=== PATIENT | female | born 1975 | race African-American/Black ===

== ENCOUNTER 2021-06-22 13:35 | Observation (INO) | payer OTHER ==
[2021-06-22] MEDS ORDERED: ONDANSETRON 4 MG/2 ML VIAL IVPUSH ONE (14:23)
[2021-06-22] MEDS ORDERED: morphine CARPU-JECT 4 MG/1 ML DISP.SYRIN IVPUSH ONE (14:23)
[2021-06-22] MEDS ORDERED: morphine SULFATE 4 MG/ML VIAL ONE ×2 (14:26→18:30)
[2021-06-22] MEDS ORDERED: ONDANSETRON 4 MG/2 ML VIAL ONE ×3 (14:27→18:38)
[2021-06-22] MEDS ORDERED: SODIUM CHLORIDE 0.9% 500 ML INFUS.BAG IV ONE (14:29)
[2021-06-22] MEDS ORDERED: FAMOTIDINE 20 MG/50 ML IVPB 20 MG/50 ML MG IVPB ONE ×2 (14:48→15:01)
[2021-06-22 15:25] LABS: BASO % 0.6 % (0-2.0); EOS % 0.2 % (0-4.5); HEMOGLOBIN 13.4 GM/dL (10.7-15.3); LYMPH % 14.2 % (8-40); MCH 35.4 pg (25.7-33.7); MCHC 34.3 g/dl (32.0-36.0); MEAN CELL VOLUME 103.2 fl (80-96); MONO % 3.9 % (3.8-10.2); NEUT % 81.1 % (42.8-82.8); PLATELET COUNT 224 10^3/uL (134-434); RBC 3.78 M/mm3 (3.60-5.2); RDW 13.3 % (11.6-15.6); WHITE BLOOD COUNT 7.1 K/mm3 (4.0-10.0)
[2021-06-22 15:31] LABS: INR 0.98 (0.83-1.09)
[2021-06-22 15:34] LABS: ACTIVATED PTT 26.3 SECONDS (25.2-36.5)
[2021-06-22] MEDS ORDERED: KETOROLAC TROMETHAMINE 30 MG/1 ML VIAL IVPUSH ONE (15:34)
[2021-06-22] MEDS ORDERED: ACETAMINOPHEN 1000 MG/100 ML VIAL IVPB ONE (15:34)
[2021-06-22] MEDS ORDERED: Methylnaltrexone Bromide 12 MG/0.6 ML KIT SQ ONE (15:36)
[2021-06-22] MEDS ORDERED: SODIUM CHLORIDE 0.9% 1000 ML INFUS.BAG IV ONE (15:38)
[2021-06-22] MEDS ORDERED: KETOROLAC TROMETHAMINE 30 MG/1 ML VIAL ONE (15:42)
[2021-06-22] MEDS ORDERED: ACETAMINOPHEN INJECTION 100 ML IVPB ONE (15:42)
[2021-06-22 15:45] LABS: CALCIUM 9.2 mg/dL (8.5-10.1)
[2021-06-22 15:46] LABS: ALBUMIN 4.1 g/dl (3.4-5.0); BLOOD UREA NITROGEN 7.6 mg/dL (7-18)
[2021-06-22 15:49] LABS: CREATININE 1.1 mg/dL (0.55-1.3)
[2021-06-22 15:51] LABS: BILIRUBIN,TOTAL 0.5 mg/dL (0.2-1); TOT PROT 7.7 g/dl (6.4-8.2)
[2021-06-22] MEDS ORDERED: ONDANSETRON 4 MG/2 ML VIAL IVPUSH PRN (17:52)
[2021-06-22] MEDS ORDERED: IBUPROFEN 600 MG TABLET (FP) PO PRN (17:52)
[2021-06-22] MEDS ORDERED: ACETAMINOPHEN 325 MG TABLET (FP) PO PRN (17:52)
[2021-06-22] MEDS ORDERED: HYDROmorphone HCL CARPU-JECT 2 MG/1 ML DISP.SYRIN IVPUSH ONE (18:14)
[2021-06-22] MEDS ORDERED: morphine SULFATE 4 MG/ML VIAL IVPUSH ONE (18:15)
[2021-06-22] MEDS: LACTATED RINGERS SOLUTION 1,000 ML IV SCH (18:19)
[2021-06-22] MEDS ORDERED: oxyCODONE HCL 5 MG TABLET ONE (21:15)
[2021-06-22] MEDS: oxyCODONE HCL 5 MG TABLET PO PRN (21:18)
[2021-06-22 23:19] VITALS: BMI 20.7
[2021-06-23] MEDS: oxyCODONE HCL 5 MG TABLET PO PRN ×6 (00:19→21:19)
[2021-06-23] MEDS: LACTATED RINGERS SOLUTION 1,000 ML IV SCH ×2 (02:15→18:17)
[2021-06-23] MEDS ORDERED: morphine SULFATE 4 MG/ML VIAL IVPUSH ONE (06:31)
[2021-06-23 09:58] LABS: HEMATOCRIT 37.6 % (32.4-45.2); HEMOGLOBIN 13.1 GM/dL (10.7-15.3); MCH 36.1 pg (25.7-33.7); MCHC 34.8 g/dl (32.0-36.0); MEAN CELL VOLUME 103.9 fl (80-96); MEAN PLT VOLUME 8.4 fl (7.5-11.1); PLATELET COUNT 189 10^3/uL (134-434); RBC 3.62 M/mm3 (3.60-5.2); RDW 13.1 % (11.6-15.6); WHITE BLOOD COUNT 8.9 K/mm3 (4.0-10.0)
[2021-06-23 10:23] LABS: CALCIUM 8.6 mg/dL (8.5-10.1)
[2021-06-23 10:24] LABS: BLOOD UREA NITROGEN 8.6 mg/dL (7-18)
[2021-06-23 10:28] LABS: CREATININE 0.8 mg/dL (0.55-1.3)
[2021-06-23] MEDS ORDERED: ONDANSETRON 4 MG/2 ML VIAL IVPUSH STA (10:55)
[2021-06-23] MEDS ORDERED: oxyCODONE HCL 5 MG TABLET PO ONE (10:57)
[2021-06-23] MEDS ORDERED: oxyCODONE HCL 5 MG TABLET PO PRN (10:57)
[2021-06-23] MEDS: FAMOTIDINE 20 MG/50 ML IVPB 20 MG/50 ML MG IVPB SCH ×2 (11:18→21:02)
[2021-06-23] MEDS: IBUPROFEN 800 MG/8 ML IJ IVPB SCH ×2 (12:06→20:03)
[2021-06-23] MEDS ORDERED: HYDROmorphone HCl 2 MG/ML VIAL IVPB ONE ×2 (13:00)
[2021-06-23] MEDS: POLYETHYLENE GLYCOL (HEALTHYLAX) 3350 17 GM PACKET PO SCH (13:12)
[2021-06-23] MEDS: SIMETHICONE 80 MG TAB.CHEW (FP) PO PRN (15:29)
[2021-06-23] MEDS: DOCUSATE SODIUM 100 MG CAPSULE (FP) PO SCH (21:01)
[2021-06-24] MEDS: oxyCODONE HCL 5 MG TABLET PO PRN ×7 (00:32→21:47)
[2021-06-24] MEDS: IBUPROFEN 800 MG/8 ML IJ IVPB SCH ×3 (02:54→18:40)
[2021-06-24] MEDS: SIMETHICONE 80 MG TAB.CHEW (FP) PO PRN (08:27)
[2021-06-24] MEDS: POLYETHYLENE GLYCOL (HEALTHYLAX) 3350 17 GM PACKET PO SCH ×2 (09:34→21:47)
[2021-06-24] MEDS: FAMOTIDINE 20 MG/50 ML IVPB 20 MG/50 ML MG IVPB SCH ×2 (09:34→21:47)
[2021-06-24] MEDS ORDERED: ONDANSETRON 4 MG/2 ML VIAL IVPUSH PRN (09:43)
[2021-06-24] MEDS ORDERED: PROCHLORPERAZINE MALEATE 25 MG SUPP.RECT RC PRN (09:44)
[2021-06-24] MEDS ORDERED: BISACODYL 5 MG TABLET.DR (FP) PO ONE (14:00)
[2021-06-24] MEDS: DOCUSATE SODIUM 100 MG CAPSULE (FP) PO SCH (21:47)
[2021-06-25] MEDS: IBUPROFEN 800 MG/8 ML IJ IVPB SCH (02:40)
[2021-06-25] MEDS: oxyCODONE HCL 5 MG TABLET PO PRN (06:42)
[2021-06-25] MEDS: POLYETHYLENE GLYCOL (HEALTHYLAX) 3350 17 GM PACKET PO SCH (09:40)
[2021-06-25] MEDS: FAMOTIDINE 20 MG/50 ML IVPB 20 MG/50 ML MG IVPB SCH (10:37)
[2021-06-25] MEDS ORDERED: LACTULOSE 20 GM/30 ML UDC (FOR ORAL USE ONLY) PO ONE (11:00)
[2021-06-25] MEDS ORDERED: FAMOTIDINE 20 MG TABLET PO SCH (11:00)
[2021-06-25] MEDS ORDERED: MAGNESIUM CITRATE 300 ML BOTTLE PO ONE (11:30)
[2021-06-25 14:34] VITALS: BP 144/60; PULSE 73; TEMP 99.1
== END 2021-06-25 18:37 | disposition home or self-care (01) ==
LOC: JER 13:35 → JERBED 17:51 → J6S 21:46
PROVIDERS: ADMIT Internal Medicine; ATTEND Nurse Practitioner Acute Care
PROC: 3E0337Z Introduction of Electrolytic and Water Balance Substance into Peripheral Vein, Percutaneous Approach (ICD-10-PCS; principal; 2021-06-22)
PROC: 3E033NZ Introduction of Analgesics, Hypnotics, Sedatives into Peripheral Vein, Percutaneous Approach (ICD-10-PCS; 2021-06-22)
PROC: 3E033GC Introduction of Other Therapeutic Substance into Peripheral Vein, Percutaneous Approach (ICD-10-PCS; 2021-06-22)
PROC: 3E0333Z Introduction of Anti-inflammatory into Peripheral Vein, Percutaneous Approach (ICD-10-PCS; 2021-06-22)
PROC: 3E023GC Introduction of Other Therapeutic Substance into Muscle, Percutaneous Approach (ICD-10-PCS; 2021-06-22)
DX: G89.18 Other acute postprocedural pain (principal); R11.2 Nausea with vomiting, unspecified; R10.30 Lower abdominal pain, unspecified; R10.9 Unspecified abdominal pain; F41.0 Panic disorder [episodic paroxysmal anxiety]; K59.00 Constipation, unspecified; D21.9 Benign neoplasm of connective and other soft tissue, unspecified; Z29.9 Encounter for prophylactic measures, unspecified
CPT/HCPCS: 36415; 74176-TC; 76830-TC; 80048; 80053; 85025; 85027; 85610; 85730; 86850; 86900; 86901; 93005; 93010; 96365; 96372; 96374; 96375; 96376; 99285-25; C9803; G0378; J0131; U0003; U0005